=== PATIENT | male | born 1975 ===

== ENCOUNTER 2023-03-17 11:22 | Emergency (ER) | payer SELFPAY ==
[~2023-03-17] VITALS: Ht 175.3 cm; Wt 91.0 kg
[2023-03-17 11:29] VITALS: BP 90/50; PULSE 75; RESP 15
[2023-03-17 11:47] LABS: HEMATOCRIT 49.5 % (41-53); HEMOGLOBIN 15.3 g/dL (13.5-17.5); MEAN CORPUSCULAR HEMOGLOBIN 31.6 pg (26.0-34.0); MEAN CORPUSCULAR HGB CONC 30.9 G/dL (31.0-37.0); MEAN CORPUSCULAR VOLUME 102 fL (80-100); PLATELET COUNT (AUTO) 210 K/uL (150-450); RED BLOOD CELL COUNT(AUTO) 4.85 MIL/uL (4.50-5.90); RED CELL DISTRIBUTION WIDTH 15.7 % (11.5-14.5)
[2023-03-17 11:51] LABS: ANION GAP 25 mmol/L (8-16); CALCIUM, TOTAL 9.6 mg/dL (8.8-10.5); CARBON DIOXIDE 15 mmol/L (22-29); CHLORIDE 95 mmol/L (98-107); CREATININE 5.41 mg/dL (0.60-1.30); GLOMERULAR FILTR. RATE CALC 11 mL/min (>60); GLUCOSE,RANDOM 247 mg/dL (70-110); POTASSIUM 4.2 mmol/L (3.5-5.1); SODIUM SERUM 135 mmol/L (136-145)
[2023-03-17 11:59] LABS: B-TYPE NATRIURETIC PEPTIDE 212 pg/mL (0-100)
[2023-03-17 12:03] LABS: ALANINE AMINOTRANSFERASE 371 U/L (12-78); ALBUMIN 2.3 g/dL (3.4-5.0); ALKALINE PHOSPHATASE 124 U/L (46-116); ASPARTATE AMINOTRANSFERASE 269 U/L (15-37); BILIRUBIN,TOTAL 0.5 mg/dL (0.1-1.0); CREATINE KINASE, TOTAL ONLY 192 U/L (39-308); TOTAL PROTEIN, SERUM 5.9 g/dL (6.4-8.2)
[2023-03-17 12:18] LABS: PHOSPHORUS 9.8 mg/dL (2.5-4.9)
[2023-03-17 12:25] LABS: LACTIC ACID 20.4 mmol/L (0.4-2.0)
[2023-03-17 12:48] LABS: BAND NEUTROPHILS % (MANUAL) 15 % (0-5); EOSINOPHILS % (MANUAL) 2 % (1-6); LYMPHOCYTES % (MANUAL) 15 % (22-44); METAMYELOCYTES % 2 % (0-0); MONOCYTES % (MANUAL) 3 % (2-9); MYELOCYTES % 1 % (0-0); REACTIVE LYMPHOCYTES 5 % (0-0); SEGMENTED NEUTROPHILS % 57 % (40-70)
[2023-03-17 13:10] LABS: AMMONIA 28 umol/L (11-32)
== END 2023-03-17 14:06 ==
LOC: EMS 11:25
DX: I46.9 Cardiac arrest, cause unspecified (principal)
CPT/HCPCS: 99291; 31500; 80053; 82140; 82550; 83605; 83735; 83880; 84100; 84484; 85025; 36415; 93005; 99152; G0480